=== PATIENT | female | born 1980 | race Caucasian/White ===

== ENCOUNTER → 2022-04-05 14:39 | Outpatient (CLI) | payer BC, SELFPAY ==
--- NOTE | 2022-04-05 14:58 | DI.RAD_ITS ---
Exam(s) XR HIP LT COMPLETE AP PELVIS EXAM: XR HIP LT COMPLETE AP PELVIS CLINICAL HISTORY: PAIN IN LEFT HIP--M25.552 TECHNIQUE: COMPARISON: No exams were available for comparison FINDINGS: Two views were obtained. No bony or soft tissue abnormality seen. IMPRESSION: RADIATION DOSE DELIVERED: Total DLP
== END ==
PROVIDERS: Visit Provider Nurse Practitioner Family
DX: M25.552 Pain in left hip (principal)
CPT/HCPCS: 73502

== ENCOUNTER → 2022-08-23 01:50 | Outpatient (CLI) | payer BC, SELFPAY ==
--- NOTE | 2022-08-23 08:25 | DI.MAMMO_ITS ---
Exam(s) MAMMO SCREENING EXAM: MAMMO SCREENING CLINICAL HISTORY: SCREENING FOR BREAST CANCER Z12.31 TECHNIQUE: Mammograms were interpreted according to the usual protocol including computer analysis w [employer] CAD system, tomosynthesis and C-view imaging. COMPARISON: No exams were available for comparison baseline exam. FINDINGS: The breasts are composed of scattered fibroglandular densities, Breast Density category B. There is question of an area of architectural distortion in the upper inner quadrant of the left [address]. Spot compression views and ultrasound are requested for further evaluation. No abnormalities se en in the right breast. No suspicious microcalcifications are seen. No skin thickening or abnormal axillary lymph nodes are seen. IMPRESSION: BI-RADS Category 0 - Assessment Incomplete: Left breast: Need additional imaging evaluation with spot compression views and ultrasound. Right breast: Negative. Breast Density - Category B, scattered fibroglandular densities. A negative radiographic report should not delay biopsy if a dominant or clinically suspicious mass is present. Up to ten percent of cancers are not identified on mammography. A negative report may reinforce clinical impression. Adenosis and dense breasts may obscure an underlying neoplasm. False positive reports average 6 to 10%. Patient will receive a letter notifying them of these results.
== END ==
PROVIDERS: Visit Provider Family Medicine
DX: Z12.31 Encounter for screening mammogram for malignant neoplasm of breast (principal); R92.8 Other abnormal and inconclusive findings on diagnostic imaging of breast
CPT/HCPCS: 77063; 77067

== ENCOUNTER 2022-08-31 02:25 | Outpatient (CLI) | payer BC, SELFPAY ==
--- NOTE | 2022-08-31 | DI.MAMMO_ITS ---
Exam(s) MG MAMMO SCREEN CALL BACK UNI US BREAST LT COMPLETE EXAM: MG MAMMO SCREEN CALL BACK UNI -LEFT AND COMPLETE LEFT BREAST ULTRSOUND CLINICAL HISTORY: F/U MAMMO, ARCHITECTURAL DISTORTION UPPER INNER QUAD LT BREAST. TECHNIQUE: Unilateral spot mammographic images obtained with 3D tomosynthesisand utilizing computer aided detection (CAD). . Complete LEFT breast Ultrasound was also performed, including all 4 quadrants, the retroareolar regio n, and the ipsilateral axilla. COMPARISON: Prior outside 2016 mammograms were reviewed, these being from [facility] and [facility] today. There have been no interval mammograms since 2016. This additional imaging was performed du e to findings described on the recent screening mammogram of 08/23/2022. . FINDINGS: DIAGNOSTIC MAMMOGRAM: Additional mammographic views performed todayrender this area less concerning.Indeed, this finding wa s evident on the 2016 [facility] mammograms now received.. COMPLETE LEFT BREAST ULTRASOUND: Ultrasound performed today reveals no significant focal findings medially to correspond to the findin g described on the mammogram.. Laterally at the 1 o'clock position there is a small nodular density measuring approximately 4 x 3 millimeters. But difficult to determine if this is a true real finding on real-time multi planar imaging. This is in the opposite side of the breasts from the mammogram f inding Scanning of the ipsilateral axilla reveals benign-appearing lymph nodes. IMPRESSION: 1. No radiographic evidence of malignancy in the left breast. The previously described asymmetric de nsity medial of center is unchanged on the prior outside 2016 mammogram which we receive today ([facility]). 2. Independent ultrasound finding at the 1 o'clock position measuring 4 x 3 millimeters. Require six -month follow-up ultrasound Appropriate follow-up repeat left breast imaging in 6 months. The patient was informed of these findings and recommendations by myself prior to leaving the departm ent today. BI-RADS Category 3 - 6 month - Probably Benign Finding: Recommend follow-up mammography in 6 months Breast Density - Category C - Heterogeneously dense Breast density Category C or D implies that the patient has dense breast tissue. Dense breast tissue can make it harder to find cancer on a mammogram. Dense breast tissue is also associated with an incr eased risk of breast cancer. This information about the result of the mammogram report was provided to the patient to raise their awareness. Use this report when you speak with the patient about their risks for breast cancer, which includes their family history. At that time, you may recommend additional screening tests (Ultrasoun d or MRI) as these tests may add significant information. A negative radiographic report should not delay biopsy if a dominant or clinically suspicious mass is present. Up to ten percent of cancers are not identified on mammography. A negative report may reinforce clinical impression. Adenosis and dense breasts may obscure an underlying neoplasm. False positive reports average 6 to 10%. Patient will receive a letter notifying them of these results.
== END 2022-08-31 02:45 ==
LOC: DI 02:26
PROVIDERS: Visit Provider Family Medicine
DX: Z12.31 Encounter for screening mammogram for malignant neoplasm of breast (principal); R92.8 Other abnormal and inconclusive findings on diagnostic imaging of breast
CPT/HCPCS: 76642; 77063; 77067

== ENCOUNTER → 2023-11-05 10:47 | Outpatient (REF) | payer BC, SELFPAY ==
--- NOTE | 2023-11-05 | DI.RAD_ITS ---
Exam(s) XR FOOT RT COMPLETE EXAM: XR FOOT RT COMPLETE CLINICAL HISTORY: pain right lateral foot / horse stepped on. TECHNIQUE: 2D digital imaging was performed. Three views. COMPARISON: No exams were available for comparison FINDINGS: BONES: No acute fracture is present. No bony destructive lesion is seen. Heel spurs. JOINTS: No dislocation present. Mild degenerative changes of 1st MTP joint. Mild hallux valgus. SOFT TISSUE: Lateral swelling. Some swelling also seen medial to 1st metatarsal head. IMPRESSION: No acute abnormality. DATA REPOSITORY: RADIATION DOSE DELIVERED:
--- NOTE | 2023-11-05 11:52 | DI.VRAD_ITS ---
PROCEDURE INFORMATION: Exam: XR Right Foot Exam date and time: 11/05/2023 11:01 AM Age: 43 years old Clinical indication: Injury or trauma; Other: Horse stepped on foot / lateral pain; Crushing; Right TECHNIQUE: Imaging protocol: Radiologic exam of the right foot. Views: 3 or more views. COMPARISON: No relevant prior studies available. FINDINGS: Bones/joints: There is moderate hallux valgus deformity. Hypertrophy of the medial aspect of the 1st metatarsal resulting in a bunion. No fractures or stress reactions. Soft tissues: Soft tissue swelling. IMPRESSION: No acute fracture. Dictated and Authenticated by: Christoph Stewart MD. Ordering:CINDY Fleming MD
== END ==
LOC: DI 10:47
PROVIDERS: PCP Family Medicine; Visit Provider Physician Assistant Medical
DX: W55.12XA Struck by horse, initial encounter (principal); M79.671 Pain in right foot
CPT/HCPCS: 73630

== ENCOUNTER 2024-08-22 03:33 | Outpatient (CLI) | payer BC, SELFPAY ==
--- NOTE | 2024-08-22 15:46 | DI.MAMMO_ITS ---
Exam(s) MAMMO SCREENING EXAM: MAMMO SCREENING CLINICAL HISTORY: Screening, Z12.31 TECHNIQUE: Bilateral full field digital CC and MLO mammographic images were obtained with 3D tomosyn thesis and utilizing computer aided detection (CAD). COMPARISON: Available for comparison. FINDINGS: Masses/Architectural Distortion: There is a new 7 mm nodule in the upper outer quadrant of the left b reast. No suspicious right breast nodules are seen. The asymmetric breast tissue in the medial aspe ct of the left breast is unchanged. Microcalcifications: No suspicious pleomorphic-type are seen. Skin Thickening/Nipple Retraction: None. IMPRESSION: 1. New 7 mm nodule in the upper outer quadrant of the left breast. 2. This area should be further evaluated with a spot compression view. Limited left breast ultrasoun d may be indicated at that time. BI-RADS Category 0 - Incomplete: Need additional imaging evaluation Breast Density - Category B - Scattered areas of fibroglandular density Breast density category C or D implies that the patient has dense breast tissue. Dense breast tissue is very common and is not abnormal but dense breast tissue can make it harder to find cancer on a ma mmogram. Also, dense breast tissue may increase their breast cancer risk. This information about the result of the mammogram report was provided to the patient to raise their awareness. Use this report when you speak with the patient about their risks for breast cancer, which includes their family hist ory. At that time, you may recommend for more screening tests (Ultrasound or MRI) as they might be us eful based on their risk. A negative radiographic report should not delay biopsy if a dominant or clinically suspicious mass is present. Up to ten percent of cancers are not identified on mammography. A negative report may reinforce clinical impression. Adenosis and dense breasts may obscure an underlying neoplasm. False positive reports average 6 to 10%. Patient will receive a letter notifying them of these results.
== END 2024-08-22 03:53 ==
LOC: DI 03:33
PROVIDERS: PCP Family Medicine; Visit Provider Family Medicine
DX: Z12.31 Encounter for screening mammogram for malignant neoplasm of breast (principal); R92.323 Mammographic fibroglandular density, bilateral breasts
CPT/HCPCS: 77063; 77067

== ENCOUNTER 2024-08-27 01:50 | Outpatient (CLI) | payer BC, SELFPAY ==
--- NOTE | 2024-08-27 10:15 | DI.MAMMO_ITS ---
Exam(s) MG MAMMO SCREEN CALL BACK UNI US BREAST LT LIMITED EXAM: MG MAMMO SCREEN CALL BACK UNI CLINICAL HISTORY: R92.8 Abn mammo, Left,new 7 mm nodule. TECHNIQUE: Craniocaudal and mediolateral oblique spot compression digital Mammography views of the l eftbreast with Tomosynthesis and left breast ultrasound. COMPARISON: DOC,MG MM DIGITAL DIAG LT W ANA LAURA UNILAT W ASSOC CHG from 03/05/2016 DOC,US US BREAST LIMITED LT from 03/05/2016 MG MG MAMMO SCREENING from 08/23/2022 US US BREAST LT COMPLETE from 08/31/2022 US US BREAST LT LIMITED from 03/02/2023 US US BREAST LT LIMITED from 08/27/2024 FINDINGS: Mammography/Tomosynthesis: Masses: Stable area of nodularity noted in the lateral left breast. Architectural Distortion: None seen. Microcalcifictions: No suspicious pleomorphic-type are seen. Skin Thickening/Nipple Retraction: None. Left breast US: Echotexture: Normal appearance of the glandular tissue. Shadowing: No suspicious foci. Cyst: 6 x 4 x 4 millimeter cluster of microcysts in the 2 o'clock position 2 cm from the nipple. Solid lesions: None seen. Ductal dilation: None. IMPRESSION: 1. No evidence of malignancy is noted. 2. Unless there is more urgent need, follow-up screening mammography is recommended, as per [place] [employer] guidelines. 3. The findings were discussed with the patient on the date of the examination. BI-RADS Category 2 - Benign Findings Breast Density - Category B - Scattered areas of fibroglandular density A negative radiographic report should not delay biopsy if a dominant or clinically suspicious mass is present. Up to ten percent of cancers are not identified on mammography. A negative report may reinforce clinical impression. Adenosis and dense breasts may obscure an underlying neoplasm. False positive reports average 6 to 10%. Patient will receive a letter notifying them of these results.
== END 2024-08-27 02:10 ==
LOC: DI 01:50
PROVIDERS: PCP Family Medicine; Visit Provider Family Medicine
DX: R92.8 Other abnormal and inconclusive findings on diagnostic imaging of breast (principal); Z12.31 Encounter for screening mammogram for malignant neoplasm of breast; R92.323 Mammographic fibroglandular density, bilateral breasts; D24.2 Benign neoplasm of left breast
CPT/HCPCS: 76642; 77063; 77067